=== PATIENT | female | born 1970 | race Caucasian/White ===

== ENCOUNTER 2020-06-06 16:07 | Emergency (ER) | payer MEDICAID ==
[~2020-06-06] VITALS: Ht 160 cm; Wt 59.9 kg
[2020-06-06 16:22] VITALS: BP_SYST 147
[2020-06-06] MEDS: ONDANSETRON 4 MG ODT TAB PO ONE (16:58)
[2020-06-06 17:36] VITALS: BP_SYST 147
== END 2020-06-06 17:30 | disposition home or self-care (01) ==
LOC: SED 16:07
DX: S06.0X0A Concussion without loss of consciousness, initial encounter (principal); F17.200 Nicotine dependence, unspecified, uncomplicated; W22.8XXA Striking against or struck by other objects, initial encounter; Y93.89 Activity, other specified; Y92.89 Other specified places as the place of occurrence of the external cause; Y99.8 Other external cause status
CPT/HCPCS: 70450; 99284; Q0162